=== PATIENT | male | born 2000 | race American Indian/Alaskan Native ===

== ENCOUNTER 2021-09-17 00:15 | Emergency (ER) | payer OTHER ==
[2021-09-17] MEDS ORDERED: ACETAMINOPHEN 500 MG TAB PO ONE ×2 (03:13→06:25)
[2021-09-17] MEDS ORDERED: IBUPROFEN 600 MG TAB PO ONE ×2 (03:13→06:25)
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
[2021-09-17 06:45] VITALS: BP 136/78
== END 2021-09-17 07:22 | disposition home or self-care (01) ==
LOC: ED 00:15
DX: S83.8X2A Sprain of other specified parts of left knee, initial encounter (principal); M62.830 Muscle spasm of back; M54.50 Low back pain, unspecified; Z88.8 Allergy status to other drugs, medicaments and biological substances; V89.2XXA Person injured in unspecified motor-vehicle accident, traffic, initial encounter; Y93.89 Activity, other specified; Y92.488 Other paved roadways as the place of occurrence of the external cause; Y99.8 Other external cause status
CPT/HCPCS: 72100; 99283